=== PATIENT | male | born 1985 | race Caucasian/White ===

== ENCOUNTER 2024-11-04 20:19 | Emergency (ER) | payer OTHER ==
[2024-11-04] MEDS ORDERED: Ondansetron ODT 4 MG TAB ONE (20:37)
== END 2024-11-04 22:08 | disposition home or self-care (01) ==
LOC: MADERS 20:19
DX: S06.0X0A Concussion without loss of consciousness, initial encounter (principal); W21.03XA Struck by baseball, initial encounter; Y93.64 Activity, baseball
CPT/HCPCS: 70450; Q0162